=== PATIENT | male | born 1965 | race Caucasian/White ===

== ENCOUNTER → 2017-08-16 | Outpatient (CLI) | payer BC ==
--- NOTE | 2017-08-16 22:49 | CT ---
EXAMINATION TYPE: CT chest wo con DATE OF EXAM: 08/16/2017 COMPARISON: CT chest September 27, 2011 HISTORY: Interstitial lung disease. CT DLP: 213 mGycm. Automated Exposure Control for Dose Reduction was Utilized. TECHNIQUE: CT scan of the thorax is performed without IV contrast. High-resolution protocol with 1 m m sequences obtained in 10 mm intervals in supine and prone technique FINDINGS: LUNGS: No pleural effusion or pneumothorax is seen bilaterally. No significant reticulation, distorti on, or linear fibrosis is identified. No worrisome consolidation or large parenchymal mass is seen. N o bronchiectasis is noted. MEDIASTINUM: Lack of IV contrast is noted to limit evaluation for mediastinal and especially hilar ad enopathy. There are no definitive greater than 1 cm hilar or mediastinal lymph nodes. No cardiomega ly or pericardial effusion is seen. OTHER: No additional significant abnormality is seen. Mildly prominent thyroid gland with 4 mm calci fication right thyroid lobe is noted. IMPRESSION: No significant acute or chronic pulmonary process.
== END | disposition home or self-care (01) ==
LOC: RADCTMAIN 18:35
PROVIDERS: ATTEND Internal Medicine Critical Care Medicine
DX: J84.9 Interstitial pulmonary disease, unspecified (principal)
CPT/HCPCS: 71250

== ENCOUNTER → 2018-05-26 | Outpatient (CLI) | payer BC ==
[2018-05-26 14:04] LABS: HCT 44.5 % (39.0-53.0); HGB 14.9 gm/dL (13.0-17.5); MCH 27.7 pg (25.0-35.0); MCHC 33.4 g/dL (31.0-37.0); MCV 82.9 fL (80.0-100.0); Mean Platelet Volume 8.1; Platelet Count 298 k/uL (150-450); RBC 5.37 m/uL (4.30-5.90); RDW 14.1 % (11.5-15.5); WBC 9.4 k/uL (3.8-10.6)
[2018-05-26 15:11] LABS: Erythrocyte Sedimentation Rate 10 mm/hr (0-15)
[2018-05-26 20:32] LABS: ALT 14 U/L (10-49); AST 12 U/L (14-35); Alkaline Phosphatase 85 U/L (41-126); Bilirubin, Conjugated <0.20 mg/dL (0.20-0.40); C Reactive Protein 1.4 mg/dL (0.0-0.8); Carbon Dioxide 25.1 mmol/L (21.6-31.8); Chloride 110 mmol/L (96-109); Potassium 4.8 mmol/L (3.5-5.5); Sodium 141 mmol/L (135-145); Total Bilirubin 0.4 mg/dL (0.3-1.2); Total Protein 6.1 g/dL (6.2-8.2)
== END | disposition home or self-care (01) ==
LOC: LABWHC1 13:03
PROVIDERS: ATTEND Internal Medicine Rheumatology
DX: M45.9 Ankylosing spondylitis of unspecified sites in spine (principal); Z79.899 Other long term (current) drug therapy
CPT/HCPCS: 36415; 80051; 82040; 82247; 82565; 84075; 84155; 84450; 84460; 84520; 85027; 85652; 86140

== ENCOUNTER → 2018-07-07 | Outpatient (CLI) | payer BC ==
[2018-07-07 18:39] LABS: Albumin 4.3 g/dL (3.80-4.90); Albumin/Globulin Ratio 2.53 (1.20-2.10); Anion Gap 7.1 mmol/L (4.00-12.00); Calcium 9.2 mg/dL (8.7-10.3); Carbon Dioxide 25.9 mmol/L (21.6-31.8); Globulin 1.7 g/dL (2.1-3.7); Potassium 4.7 mmol/L (3.5-5.5); Total Bilirubin 0.5 mg/dL (0.3-1.2)
== END | disposition home or self-care (01) ==
LOC: LABWHC1 10:30
PROVIDERS: ATTEND Family Medicine
DX: Z13.29 Encounter for screening for other suspected endocrine disorder (principal)
CPT/HCPCS: 36415; 80053

== ENCOUNTER → 2018-12-22 | Outpatient (CLI) | payer BC ==
--- NOTE | 2018-12-22 13:41 | XR ---
EXAMINATION TYPE: XR chest 2V DATE OF EXAM: 12/22/2018 COMPARISON: Prior chest x-ray dated 08/13/2017, chest CT 08/16/2017 HISTORY: Cough, pain in throat TECHNIQUE: Frontal and lateral views of the chest are obtained. FINDINGS: There is no focal air space opacity, pleural effusion, or pneumothorax seen. The cardiac silhouette size is within normal limits. There is bronchial wall thickening. The osseous structures are intact. Subcentimeter right lower lobe lung nodule seen on prior CT not seen on plain film. IMPRESSION: Correlate for bronchitis, reactive airways disease. Nonvisualization of lung nodule.
== END | disposition home or self-care (01) ==
LOC: RADXRMAIN 13:15
PROVIDERS: ATTEND Family Medicine
DX: R05 Cough (principal); R07.0 Pain in throat
CPT/HCPCS: 71046

== ENCOUNTER → 2019-04-15 | Outpatient (CLI) | payer BC | END | disposition home or self-care (01) | LOC: LABWHC1 09:40 | PROVIDERS: ATTEND Family Medicine | DX: R68.82 Decreased libido (principal) | CPT/HCPCS: 36415; 82040; 84270; 84403 ==

== ENCOUNTER → 2019-12-21 | Outpatient (CLI) | payer BC | END | disposition home or self-care (01) | LOC: LABWHC1 11:32 | PROVIDERS: ATTEND Surgery | DX: Z11.59 Encounter for screening for other viral diseases (principal) ==

== ENCOUNTER 2019-12-22 08:13 | Day surgery (SDC) | payer BC ==
[2019-12-21 09:02] VITALS: BMI 31.1
[~2019-12-22 08:13] MED LIST: LACTATED RINGERS 1,000 ML IV SCH; LIDOCAINE 1% (10MG/ML) FOR IV START INTRADERMA PRN
[2019-12-22 08:39] VITALS: TEMP 97.7
[2019-12-22] MEDS ORDERED: LIDOCAINE 1% INJ 10MG/ML (20 ML MDV) ONE (09:42)
[2019-12-22] MEDS ORDERED: PROPOFOL 10 MG/ML 20 ML VIAL IV ONE (09:42)
[2019-12-22] MEDS ORDERED: MIDAZOLAM 2 MG/2 ML VIAL ONE (09:42)
--- NOTE | 2019-12-22 09:50 | P.GSHP ---
History of Present Illness H&P Date: 12/22/19 Chief Complaint: Blood in stool 54-year-old male here today for colonoscopy. Recently had a positive cologuard test. Denies rectal bleeding. No melanotic stools. No change in bowel habits. Has not had a previous colonoscopy. No family history of colon cancer. Past Medical History Past Medical History: Asthma, Cancer, Rheumatoid Arthritis (RA) Additional Past Medical History / Comment(s): MELANOMA History of Any Multi-Drug Resistant Organisms: None Reported Past Surgical History: Tonsillectomy Additional Past Surgical History / Comment(s): SKIN LESION REMOVED Past Anesthesia/Blood Transfusion Reactions: No Reported Reaction Smoking Status: Current every day smoker - Past Family History Mother Family Medical History: No Reported History Medications and Allergies Home Medications Medication Instructions Recorded Confirmed Type Naproxen [Naprosyn] 500 mg PO HS PRN 07/14/17 12/22/19 History Albuterol Inhaler ([facility]hu) [Ventolin 1 - 2 puff INHALATION Q4-6H PRN 12/21/19 12/22/19 History Hfa Inhaler ([facility]hu)] Cyclobenzaprine [Flexeril] 10 mg PO HS 12/21/19 12/22/19 History Fluticasone Nasal [place] [Flonase 2 spr EA NOSTRIL DAILY PRN 12/21/19 12/22/19 History Nasal [place]] Loratadine [Claritin] 10 mg PO DAILY PRN 12/21/19 12/22/19 History Secukinumab [Cosentyx Pen] 150 mg SQ QMONTH 12/21/19 12/22/19 History Allergies Allergy/AdvReac Type Severity Reaction Status Date / Time bee venom protein (honey bee) Allergy Dyspnea,SWELLING Verified 12/22/19 08:42 , HIVES Surgical - Exam Vital Signs Temp Pulse Resp BP Pulse Ox 97.7 F 88 16 122/83 95 12/22/19 08:37 12/22/19 08:37 12/22/19 08:37 12/22/19 08:37 12/22/19 08:37 Physical exam: General: Well-developed, well-nourished HEENT: Normocephalic, sclerae nonicteric Abdomen: Nontender, nondistended Extremities: No edema Neuro: Alert and oriented Assessment and Plan (1) Blood in stool Narrative/Plan: Will proceed with colonoscopy at this time Current Visit: Yes Status: Acute Code(s): K92.1 - MELENA SNOMED Code(s): 333431276
--- NOTE | 2019-12-22 10:11 | P.PCN ---
Date of Procedure: 12/22/19 Procedure(s) Performed: PREOPERATIVE DIAGNOSIS: Blood in stool, abnormal cologuard POSTOPERATIVE DIAGNOSIS: Ascending colon polyp, transverse colon polyp, rectal polyp 2 PROCEDURE: Colonoscopy with snare polypectomy ANESTHESIA: MAC SURGEON: Laci Montaño M.D. SPECIMENS: Polyps ENDOSCOPIC PROCEDURE: The patient was placed on the endoscopy table in the left decubitus position. The Olympus colonoscope was inserted into the anus and passed under direct visualization to the base of the cecum. The appendiceal orifice was visualized. From that point the scope was slowly withdrawn inspecting all surfaces carefully. There were no neoplastic inflammatory or polypoid lesions throughout the cecum. In the ascending colon a small polyp was identified and removed using the snare with cautery technique. A similar polyp was seen in the transverse colon and removed in similar fashion. The descending colon and sigmoid colon appeared normal. No diverticulosis was seen. In the rectum 2 small polyps were seen and removed using the snare with cautery technique. Digital rectal examination was normal. The patient was taken to the recovery room in stable condition per anesthesia guidelines. RECOMMENDATIONS: Await results. Anticipate follow-up colonoscopy 5 years.
[2019-12-22 10:32] VITALS: BP 129/88; PULSE 78; RESP 18
== END 2019-12-22 10:56 | disposition home or self-care (01) ==
LOC: ORWHC2ENDO 08:13
PROVIDERS: ATTEND Surgery
DX: K63.5 Polyp of colon (principal); K62.1 Rectal polyp; J45.909 Unspecified asthma, uncomplicated; M06.9 Rheumatoid arthritis, unspecified; F17.200 Nicotine dependence, unspecified, uncomplicated; Z85.820 Personal history of malignant melanoma of skin; Z90.89 Acquired absence of other organs; Z79.1 Long term (current) use of non-steroidal anti-inflammatories (NSAID); Z79.899 Other long term (current) drug therapy; Z98.890 Other specified postprocedural states; Z91.030 Bee allergy status
CPT/HCPCS: 88305; 45385; J2250; J2001; J2704

== ENCOUNTER → 2020-02-09 | Outpatient (CLI) | payer BC | END | disposition home or self-care (01) | LOC: LABWHC1 08:26 | PROVIDERS: ATTEND Nurse Practitioner Family | DX: Z20.828 Contact with and (suspected) exposure to other viral communicable diseases (principal) | CPT/HCPCS: U0003; C9803 ==

== ENCOUNTER → 2020-06-24 | Outpatient (CLI) | payer BC ==
[2020-06-24 16:57] LABS: Basophils # (A) 0.1 k/uL (0-0.2); Basophils % (A) 1 %; Eosinophils # (A) 0.3 k/uL (0-0.7); Eosinophils % (A) 3 %; HCT 44.5 % (39.0-53.0); HGB 14.5 gm/dL (13.0-17.5); Lymphocytes # (A) 3.7 k/uL (1.0-4.8); Lymphocytes % (A) 36 %; MCH 27.4 pg (25.0-35.0); MCHC 32.7 g/dL (31.0-37.0); MCV 83.9 fL (80.0-100.0); Mean Platelet Volume 9.2; Monocytes # (A) 0.5 k/uL (0-1.0); Monocytes % (A) 5 %; Neutrophils # (A) 5.7 k/uL (1.3-7.7); Neutrophils % (A) 55 %; Platelet Count 313 k/uL (150-450); RBC 5.31 m/uL (4.30-5.90); RDW 13.4 % (11.5-15.5); WBC 10.4 k/uL (3.8-10.6)
[2020-06-24 17:58] LABS: Erythrocyte Sedimentation Rate 18 mm/hr (0-15)
[2020-06-25 01:38] LABS: African American GFR (CKD) 112.6 (60.0-200.0); Albumin 4.2 g/dL (3.80-4.90); C Reactive Protein 2.2 mg/dL (0.0-0.8); Calcium 9.2 mg/dL (8.7-10.3); Non-African American GFR(CKD) 97.2 (60.0-200.0); Potassium 4.5 mmol/L (3.5-5.5); Total Bilirubin 0.3 mg/dL (0.3-1.2); Total Protein 6.4 g/dL (6.2-8.2)
== END | disposition home or self-care (01) ==
LOC: LABWHC1 15:09
PROVIDERS: ATTEND Internal Medicine Rheumatology
DX: M45.0 Ankylosing spondylitis of multiple sites in spine (principal); Z79.899 Other long term (current) drug therapy
CPT/HCPCS: 36415; 80051; 82040; 82247; 82310; 82565; 84075; 84155; 84450; 84460; 84520; 85025; 85652; 86140

== ENCOUNTER 2022-10-04 01:55 | Emergency (ER) | payer BC ==
[2022-10-04 02:03] VITALS: TEMP 97.9
--- NOTE | 2022-10-04 02:15 | ED ---
Back Pain HPI - General Source: patient, RN notes reviewed Limitations: no limitations - History of Present Illness MD Complaint: other (Right flank pain) <Bethany Hart - Last Filed: 10/04/22 02:15> <Jasvir Campa - Last Filed: 10/04/22 07:02> - General Chief Complaint: Abdominal Pain Stated Complaint: Kidney Stones Time Seen by Provider: 10/04/22 02:00 - History of Present Illness Initial Comments: This is a 57-year-old male who presents to the emergency department for right- sided flank pain. He was evaluated here on 09/30 for the same symptoms and diagnosed with a kidney stone. Symptoms were well controlled in the emergency department at that time and he was discharged with starter packs for Tylenol #3 and Zofran, which he states only mildly improved his symptoms. Continues to have increasing right flank pain that he says he can no longer manage at home. Also reports associated nausea and vomiting. (Bethany Hart) - Related Data Home Medications Medication Instructions Recorded Confirmed Naproxen [Naprosyn] 500 mg PO HS PRN 07/14/17 12/22/19 Albuterol Inhaler [Ventolin Hfa 1 - 2 puff INHALATION Q4-6H PRN 12/21/19 12/22/19 Inhaler] Cyclobenzaprine [Flexeril] 10 mg PO HS 12/21/19 12/22/19 Fluticasone Nasal [place] [Flonase 2 spr EA NOSTRIL DAILY PRN 12/21/19 12/22/19 Nasal [place]] Loratadine [Claritin] 10 mg PO DAILY PRN 12/21/19 12/22/19 Secukinumab [Cosentyx Pen] 150 mg SQ QMONTH 12/21/19 12/22/19 Previous Rx's Medication Instructions Recorded HYDROcodone/APAP 5-325MG [[place] 1 tab PO Q6HR PRN 3 Days #12 tab 10/04/22 5-325] Ketorolac [Toradol] 10 mg PO Q6HR #12 tab 10/04/22 Ondansetron Odt [Zofran Odt] 4 mg PO Q8HR PRN #12 tab 10/04/22 Allergies Allergy/AdvReac Type Severity Reaction Status Date / Time bee venom protein (honey bee) Allergy Dyspnea,SWELLING Verified 10/04/22 02:03 , HIVES Review of Systems ROS Other: All systems not noted in ROS Statement are negative. <Bethany Hart - Last Filed: 10/04/22 02:15> ROS Other: All systems not noted in ROS Statement are negative. <Jasvir Campa - Last Filed: 10/04/22 07:02> ROS Statement: Those systems with pertinent positive or pertinent negative responses have been documented in the HPI. Past Medical History Past Medical History: Rheumatoid Arthritis (RA) Additional Past Medical History / Comment(s): MELANOMA History of Any Multi-Drug Resistant Organisms: None Reported Past Surgical History: Tonsillectomy Additional Past Surgical History / Comment(s): SKIN LESION REMOVED Past Anesthesia/Blood Transfusion Reactions: No Reported Reaction Past Psychological History: No Psychological Hx Reported Smoking Status: Current every day smoker Past Alcohol Use History: None Reported Past Drug Use History: None Reported - Past Family History Mother Family Medical History: No Reported History <Bethany Hart - Last Filed: 10/04/22 02:15> General Exam Limitations: no limitations <Bethany Hart - Last Filed: 10/04/22 02:15> - General Exam Comments Initial Comments: Visual Physical Exam Vital signs reviewed General: Well-appearing, nontoxic, in distress secondary to pain Head: Normocephalic, atraumatic Eyes: PERRLA, EOMI ENT: Airway patent Chest: Nonlabored breathing Skin: No visual rash, normal skin tone Neuro: Alert and oriented 3 Musculoskeletal: No gross abnormalities (Bethany Hart) Course Vital Signs 10/04/22 10/04/22 10/04/22 02:00 03:20 05:55 Temperature 97.9 F Pulse Rate 73 74 68 Respiratory 20 16 18 Rate Blood Pressure 151/92 141/81 148/98 O2 Sat by Pulse 95 96 95 Oximetry Medical Decision Making - Lab Data Result diagrams: 10/04/22 02:38 10/04/22 02:38 <Jasvir Campa - Last Filed: 10/04/22 07:02> - Medical Decision Making Dictation was produced using [employer] dictation software. please excuse any grammatical, word or spelling errors. Chief Complaint: 57-year-old male presents emergency department for recurrence of right-sided flank pain. History of Present Illness: 57-year-old male he was here on Saturday which was 4 days ago. He seen for kidney stone. Diagnosed with a 2 mm deer distal ureter kidney stone. Patient states that he was discharged at that time. Today after he states that his pain almost completely resolved except for a dull ache. Patient was relatively asymptomatic until yesterday afternoon when all of a sudden his symptoms recurred. States that hurts worse than the initial episode. Patient states that his symptoms come in waves. Does report colicky nature and radiation to the right groin. His symptoms are accompanied with nausea and shaking chills. The ROS documented in this emergency department record has been reviewed and confirmed by me. Those systems with pertinent positive or negative responses have been documented in the HPI. All other systems are other negative and/or noncontributory. PHYSICAL EXAM: General Impression: Alert and oriented x3, acute distress secondary pain HEENT: Normocephalic atraumatic, extra-ocular movements intact, pupils equal and reactive to light bilaterally, mucous membranes moist. Cardiovascular: Heart regular rate and rhythm Chest: Able to complete full sentences, no retractions, no tachypnea Abdomen: abdomen soft, non-tender, non-distended, no organomegaly, positive CVA thump to the right CVA area Musculoskeletal: Pulses present and equal in all extremities, no peripheral edema Motor: no focal deficits noted Neurological: CN II-XII grossly intact, no focal motor or sensory deficits noted Skin: Intact with no visualized rashes Psych: Normal affect and mood ED course: 57-year-old ill-appearing male presents emergency department for recurrence of right-sided flank pain. Vital signs upon arrival are within acceptable limits. CT from 09/30/2022 was reviewed. It did not appear to be any calculi in the right kidney which would explain recurrence of his symptoms. Nursing notes and chart review was performed Was pt. sent in by a medical professional or institution ([facility], REPAIR SPECIALIST, urgent care, hospital, or [facility]...) When possible be specific @ -No Did you speak to anyone other than the patient for history (EMS, parent, family, police, friend...)? What history was obtained from this source @ -No Did you review nursing and triage notes (agree or disagree)? Why? @ -I reviewed and agree with nursing and triage notes Were old charts reviewed (outside hosp., previous admission, EMS record, old EKG, old radiological studies, urgent care reports/EKG's, [facility] records)? Report findings @ -No old charts were reviewed Differential Diagnosis (chest pain, altered mental status, abdominal pain women, abdominal pain men, vaginal bleeding, musculoskeletal, weakness, fever, dyspnea, syncope, headache, dizziness, GI bleed, back pain, seizure, CVA, palpatations, mental health)? @ -Differential Abdominal Pain Men: Appendicitis, cholecystitis, diverticulosis, ischemic bowel, pancreatitis, he patitis, UTI, gastroenteritis, AAA, incarcerated hernia, bowel obstruction, constipation, inflammatory bowel, hepatitis, peptic ulcer disease, splenic infarction, perforated viscus, testicular torsion, this is not meant to be an all-inclusive list EKG interpreted by me (3pts min.). @ -None done X-rays interpreted by me (1pt min.). @ -None done CT interpreted by me (1pt min.). @ -Obstructing right nephrolithiasis similar to CT from 4 days ago U/S interpreted by me (1pt. min.). @ -None done What testing was considered but not performed or refused? (CT, X-rays, U/S, labs)? Why? @ -See above What meds were considered but not given or refused? Why? @ -See above Did you discuss the management of the patient with other professionals (professionals i.e. , PA, REPAIR SPECIALIST, lab, RT, psych nurse, child welfare social worker, highway administrative engineer, teacher, product safety officer, assistant case manager)? Give summary @ -no Was smoking cessation discussed for >3mins.? @ -No Was critical care preformed (if so, how long)? @ -No Were there social determinants of health that impacted care today? How? (Homelessness, low income, unemployed, alcoholism, drug addiction, transportation, low edu. Level, literacy, decrease access to med. care, shelter, rehab)? @ -No Was there de-escalation of care discussed even if they declined (Discuss DNR or withdrawal of care, Hospice)? DNR status @ -No What co-morbidities impacted this encounter? (DM, HTN, Smoking, COPD, CAD, Cancer, CVA, ARF, Chemo, Hep., AIDS, mental health diagnosis, sleep apnea, morbid obesity)? @ -None Was patient admitted / discharged? Hospital course, mention meds given and route, prescriptions, significant lab abnormalities, going to OR and other pertinent info. @ -57-year-old male presents emergency department for recurrence of right-sided flank pain. Computed tomography scan shows no significant change from CT imaging from 4 days ago. Patient counseled on fluid intake and analgesics. Patient told that he should be able to pass a stone actually given its small size however that it may take sometimes up to 2 weeks. Patient given outpatient referral to urology. Analgesics, antiemetics prescriptions at the pharmacy. Undiagnosed new problem with uncertain prognosis? @ -No Drug Therapy requiring intensive monitoring for toxicity (Heparin, Nitro, Insulin, Cardizem)? @ -No Were any procedures done? @ -No Diagnosis/symptom? Acute, or Chronic, or Acute on Chronic? Uncomplicated (without systemic symptoms) or Complicated (systemic symptoms)? @ -1. Acute, persistent nephrolithiasis Side effects of treatment? @ -No Exacerbation, Progression, or Severe Exacerbation? @ -No Poses a threat to life or bodily function? How? (Chest pain, [place], [place], pneumonia, PE, COPD, DKA, ARF, appy, cholecystitis, CVA, Diverticulitis, Homicidal, Suicid al, threat to staff... and all critical care pts) @ -yes (Jasvir Campa) - Lab Data Lab Results 10/04/22 10/04/22 10/04/22 Range/Units 02:38 02:38 02:38 WBC 12.7 H (3.8-10.6) k/uL RBC 5.53 (4.30-5.90) m/uL Hgb 16.2 (13.0-17.5) gm/dL Hct 48.8 (39.0-53.0) % MCV 88.3 (80.0-100.0) fL MCH 29.3 (25.0-35.0) pg MCHC 33.2 (31.0-37.0) g/dL RDW 13.0 (11.5-15.5) % Plt Count 239 (150-450) k/uL MPV 10.4 Neutrophils % 77 % Lymphocytes % 16 % Monocytes % 4 % Eosinophils % 2 % Basophils % 1 % Neutrophils # 9.8 H (1.3-7.7) k/uL Lymphocytes # 2.0 (1.0-4.8) k/uL Monocytes # 0.5 (0-1.0) k/uL Eosinophils # 0.2 (0-0.7) k/uL Basophils # 0.1 (0-0.2) k/uL Sodium 137 (137-145) mmol/L Potassium 5.0 (3.5-5.1) mmol/L Chloride 107 (98-107) mmol/L Carbon Dioxide 24 (22-30) mmol/L Anion Gap 6 mmol/L BUN 29 H (9-20) mg/dL Creatinine 1.06 (0.66-1.25) mg/dL Est GFR (CKD-EPI)AfAm >90 (>60 ml/min/1.73 sqM) Est GFR (CKD-EPI)NonAf 79 (>60 ml/min/1.73 sqM) Glucose 117 H (74-99) mg/dL Plasma Lactic Acid Tomy 0.7 (0.7-2.0) mmol/L Calcium 8.9 (8.4-10.2) mg/dL Total Bilirubin 0.6 (0.2-1.3) mg/dL AST 22 (17-59) U/L ALT 19 (4-49) U/L Alkaline Phosphatase 70 (38-126) U/L Total Protein 6.9 (6.3-8.2) g/dL Albumin 4.1 (3.5-5.0) g/dL Urine Color Urine Appearance (Clear) Urine pH (5.0-8.0) Ur Specific [place] (1.001-1.035) Urine Protein (Negative) Urine Glucose (UA) (Negative) Urine Ketones (Negative) Urine Blood (Negative) Urine Nitrite (Negative) Urine Bilirubin (Negative) Urine Urobilinogen (<2.0) mg/dL Ur Leukocyte Esterase (Negative) Urine RBC (0-5) /hpf Urine WBC (0-5) /hpf Ur Squamous Epith Cells (0-4) /hpf Urine Mucus (None) /hpf 10/04/22 Range/Units 02:39 WBC (3.8-10.6) k/uL RBC (4.30-5.90) m/uL Hgb (13.0-17.5) gm/dL Hct (39.0-53.0) % MCV (80.0-100.0) fL MCH (25.0-35.0) pg MCHC (31.0-37.0) g/dL RDW (11.5-15.5) % Plt Count (150-450) k/uL MPV Neutrophils % % Lymphocytes % % Monocytes % % Eosinophils % % Basophils % % Neutrophils # (1.3-7.7) k/uL Lymphocytes # (1.0-4.8) k/uL Monocytes # (0-1.0) k/uL Eosinophils # (0-0.7) k/uL Basophils # (0-0.2) k/uL Sodium (137-145) mmol/L Potassium (3.5-5.1) mmol/L Chloride (98-107) mmol/L Carbon Dioxide (22-30) mmol/L Anion Gap mmol/L BUN (9-20) mg/dL Creatinine (0.66-1.25) mg/dL Est GFR (CKD-EPI)AfAm (>60 ml/min/1.73 sqM) Est GFR (CKD-EPI)NonAf (>60 ml/min/1.73 sqM) Glucose (74-99) mg/dL Plasma Lactic Acid Tomy (0.7-2.0) mmol/L Calcium (8.4-10.2) mg/dL Total Bilirubin (0.2-1.3) mg/dL AST (17-59) U/L ALT (4-49) U/L Alkaline Phosphatase (38-126) U/L Total Protein (6.3-8.2) g/dL Albumin (3.5-5.0) g/dL Urine Color Yellow Urine Appearance Clear (Clear) Urine pH 6.0 (5.0-8.0) Ur Specific [place] 1.028 (1.001-1.035) Urine Protein Trace H (Negative) Urine Glucose (UA) Negative (Negative) Urine Ketones Negative (Negative) Urine Blood Small H (Negative) Urine Nitrite Negative (Negative) Urine Bilirubin Negative (Negative) Urine Urobilinogen 2.0 (<2.0) mg/dL Ur Leukocyte Esterase Trace H (Negative) Urine RBC 10 H (0-5) /hpf Urine WBC 10 H (0-5) /hpf Ur Squamous Epith Cells 1 (0-4) /hpf Urine Mucus Rare H (None) /hpf Disposition <Bethany Hart - Last Filed: 10/04/22 02:15> Is patient prescribed a controlled substance at d/c from ED?: Yes If prescribed controlled substance>3 days was MAPS reviewed?: Prescribed <3 Days Time of Disposition: 07:02 <Jasvir Campa - Last Filed: 10/04/22 07:02> Clinical Impression: Kidney stone Disposition: HOME SELF-CARE Condition: Good Instructions (If sedation given, give patient instructions): Kidney Stones (ED) Prescriptions: HYDROcodone/APAP 5-325MG [[place] 5-325] 1 tab PO Q6HR PRN 3 Days #12 tab PRN Reason: Severe Pain Ketorolac [Toradol] 10 mg PO Q6HR #12 tab Ondansetron Odt [Zofran Odt] 4 mg PO Q8HR PRN #12 tab PRN Reason: Nausea Referrals: Emmanuel Silva MD [STAFF PHYSICIAN] - 1-2 days
[2022-10-04] MEDS ORDERED: ONDANSETRON ODT 4 MG TAB PO STA (02:20)
[2022-10-04] MEDS ORDERED: SODIUM CHLORIDE 0.9% 1,000 ML IV STA ×2 (02:20→06:46)
[2022-10-04] MEDS ORDERED: KETOROLAC 15 MG/ML 1 ML VIAL IVP STA (02:20)
[2022-10-04 03:34] LABS: ALT 19 U/L (4-49); African American GFR (CKD) >90 (>60 ml/min/1.73 sqM); Albumin 4.1 g/dL (3.5-5.0); Anion Gap 6 mmol/L; Blood Urea Nitrogen 29 mg/dL (9-20); Calcium 8.9 mg/dL (8.4-10.2); Carbon Dioxide 24 mmol/L (22-30); Chloride 107 mmol/L (98-107); Glucose 117 mg/dL (74-99); Non-African American GFR(CKD) 79 (>60 ml/min/1.73 sqM); Sodium 137 mmol/L (137-145); Total Bilirubin 0.6 mg/dL (0.2-1.3); Total Protein 6.9 g/dL (6.3-8.2)
[2022-10-04 03:56] LABS: Basophils # (A) 0.1 k/uL (0-0.2); Basophils % (A) 1 %; Eosinophils # (A) 0.2 k/uL (0-0.7); Eosinophils % (A) 2 %; HCT 48.8 % (39.0-53.0); HGB 16.2 gm/dL (13.0-17.5); Lymphocytes % (A) 16 %; MCH 29.3 pg (25.0-35.0); MCHC 33.2 g/dL (31.0-37.0); MCV 88.3 fL (80.0-100.0); Mean Platelet Volume 10.4; Monocytes # (A) 0.5 k/uL (0-1.0); Monocytes % (A) 4 %; Neutrophils # (A) 9.8 k/uL (1.3-7.7); Neutrophils % (A) 77 %; Platelet Count 239 k/uL (150-450); RBC 5.53 m/uL (4.30-5.90); WBC 12.7 k/uL (3.8-10.6)
[2022-10-04 03:58] LABS: AST 22 U/L (17-59); Alkaline Phosphatase 70 U/L (38-126)
[2022-10-04 04:02] LABS: Appearance,Urine Clear (Clear); Bilirubin,Urine Negative (Negative); Blood,Urine Small (Negative); Color,Urine Yellow; Glucose,Urine (UA) Negative (Negative); Ketones,Urine Negative (Negative); Leukocyte Esterase,Urine Trace (Negative); Mucus,Urine Rare /hpf; Nitrite,Urine Negative (Negative); Protein,Urine Trace (Negative); RBC,Urine 10 /hpf (0-5); Specific Gravity,Urine 1.028 (1.001-1.035); Squamous Epithelial Cell,Urine 1 /hpf (0-4); WBC,Urine 10 /hpf (0-5)
[2022-10-04] MEDS ORDERED: IBUPROFEN 800 MG TAB PO STA (04:07)
--- NOTE | 2022-10-04 06:52 | CT ---
EXAMINATION TYPE: CT abdomen pelvis wo con DATE OF EXAM: 10/04/2022 COMPARISON: 09/30/2022 HISTORY: Right flank pain recurrene, worst than previous CT DLP: 869.3 mGycm Automated exposure control for dose reduction was used. Images obtained from the diaphragm to the floor the pelvis with no contrast. There is mild subsegmental atelectasis at the lung bases. Heart size is normal. No pericardial effusi on. No pleural effusion. Liver spleen and stomach pancreas gallbladder appear intact. The bile duct are not dilated. There is 3 cm low-density left adrenal mass suggestive of benign disease. Kidneys have normal size. There is 3 mm calculus lower pole left kidney. There is some fullness of th e right renal pelvis and right ureter. There is 2 mm obstructing calculus in the lower right ureter. Bladder distends smoothly. No inguinal hernia. No free fluid in the pelvis. No pelvic mass. There is no mesenteric edema. No ascites or free air. No evidence of a bowel obstruction. Appendix is posterior and appears normal. The lumbar vertebrae have normal alignment. No compression fracture. Posterior elements are intact. B willian pelvis is intact and sacroiliac joints are intact. There is some osteosclerosis in the iliac bone s adjacent to the sacroiliac joints. IMPRESSION: Small obstructing calculus distal right ureter with right-sided hydronephrosis and hydroureter. Nonobstructing left renal calculus. Right renal obstruction appears not significantly different than last exam. Calculus in similar location. Sclerotic changes in the iliac bones consistent with benign disease. Normal appendix.
[2022-10-04] MEDS ORDERED: HYDROmorphone 0.5 MG/0.5 ML SYRINGE IVP STA (07:53)
[2022-10-04 09:02] VITALS: BP 141/97; PULSE 80; RESP 20
== END 2022-10-04 08:55 | disposition home or self-care (01) ==
LOC: EC 01:55
DX: N13.2 Hydronephrosis with renal and ureteral calculous obstruction (principal); M06.9 Rheumatoid arthritis, unspecified; F17.200 Nicotine dependence, unspecified, uncomplicated; Z91.030 Bee allergy status; Z79.899 Other long term (current) drug therapy
CPT/HCPCS: 36415; 80053; 83605; 85025; 81001; 74176; 99284; 96374; 96375; 96361 ×2; J1885; J1170